=== PATIENT | female | born 1980 | race Caucasian/White ===

== ENCOUNTER 2019-07-02 13:18 | Emergency (ER) | payer MEDICAID ==
[2019-07-02 13:24] VITALS: BP 147/90; PULSE 98
--- NOTE | 2019-07-02 13:36 | EDM.PDOC ---
ED HPI GENERAL MEDICAL PROBLEM - General Chief Complaint: Back Pain or Injury Stated Complaint: back pain Time Seen by Provider: 07/02/19 13:25 Source of Information: Reports: Patient, Old Records (No [facility] records available) History Limitations: Reports: No Limitations - History of Present Illness INITIAL COMMENTS - FREE TEXT/NARRATIVE: The patient was brought to the emergency room via private automobile by her father for evaluation of refractory low back pain with right-sided sciatica extending into the buttocks, which did worsen after a chiropractic treatment on 06/29 by her chiropractor, Phil Palacios, although no acute injury at that time. She rates her discomfort at 6/10 at rest with worsening 10/10 sharp right-sided low back pain radiating to the right buttocks region with movement. She denies any recent history of fall or injury. No history of paresthesias, leg weakness, neurological deficits, etc. with previously known degenerative disc disease by her history. He did take 600 mg of ibuprofen at 10 AM this morning with 650 mg of Tylenol taken at 4 AM. The patient denies any chest pain/pressure, heart flutter, dizziness, orthostasis, orthopnea, diaphoresis, paresthesias, recent decreased exercise tolerance, or any other anginal-type symptoms. No recent history of abdominal pain, heartburn, nausea, diarrhea, melena, gross hematochezia, or any food intolerance, including fatty foods, etc.. The patient also denies any recent fever, cough, wheezing, dyspnea, etc.. She denies any gross hematuria, colic, or other UTI symptoms. Onset: Gradual Onset Date: 06/29/19 Duration: Constant, Getting Worse Location: Reports: Back, Lower Extremity, Right (Buttocks), Radiates to (As above). Denies: Head, Face, Neck, Chest, Abdomen, Upper Extremity, Left, Upper Extremity, Right, Lower Extremity, Left Quality: Reports: Same as Previous Episode, Sharp, Stabbing Severity: Severe Improves with: Reports: Rest Worsens with: Reports: Movement Context: Reports: Other (As above). Denies: Trauma Associated Symptoms: Denies: Confusion, Chest Pain, Cough, Diaphoresis, Fever/ Chills, Headaches, Loss of Appetite, Nausea/Vomiting, Seizure, Shortness of Breath, Syncope, Weakness Treatments TOUR DIRECTOR: Reports: Acetaminophen, NSAIDS Lower Back Pain Score (Numeric/FACES): 10 - Related Data Allergies Allergy/AdvReac Type Severity Reaction Status Date / Time CT scan dye Allergy Airway Uncoded 07/02/19 13:25 Tightness Home Meds: Home Meds Albuterol [Ventolin 2 MG/5 ML] 2 puff INH ACLUNCH 07/02/19 [History] Cyclobenzaprine [Flexeril] 10 mg PO TID PRN #30 tab 07/02/19 [Rx] Fluticasone/Salmeterol [Advair 250-50 Diskus] 1 each IH BID 07/02/19 [History] Levonorgestrel [Mirena] 1 each IY ASDIRECTED 07/02/19 [History] Montelukast [Singulair] 10 mg PO DAILY 07/02/19 [History] Past Medical History HEENT History: Reports: None, Allergic Rhinitis, Impaired Vision, Other (See Below) Other HEENT History: Patient wears glasses. Cardiovascular History: Reports: Heart Murmur, Syncope, Other (See Below) Other Cardiovascular History: Benign heart murmur of with additional syncopal episode in March 2011 with negative echocardiogram as below. Respiratory History: Reports: Asthma, Bronchitis, Recurrent. Denies: Pneumonia , Recurrent Gastrointestinal History: Reports: Cholelithiasis, Other (See Below) Other Gastrointestinal History: Dysfunctional gallbladder with ejection fraction of only 7%. 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 Note current IUD. Gestational diabetes with second . Otherwise, Full term without complications during pregnancies or deliveries. Benign ovarian cysts. Musculoskeletal History: Reports: Arthritis, Back Pain, Chronic, Osteoarthritis , Other (See Below). Denies: Fracture Other Musculoskeletal History: Scoliosis. Workmen's Compensation injury in 2002 when a [facility] resident fell on her low back. Endocrine/Metabolic History: Reports: Diabetes, Gestational, Obesity/BMI 30+. Denies: Diabetes, Type I, Diabetes, Type II, Hypothyroidism, IDDM Dermatologic History: Reports: Other (See Below) Other Dermatologic History: Acne vulgaris. - Past Surgical History Head Surgeries/Procedures: Reports: None HEENT Surgical History: Reports: Adenoidectomy, Oral Surgery, Tonsillectomy, Other (See Below) Other HEENT Surgeries/Procedures: Tonsillectomy and adenoidectomy. Holiday teeth extraction x 4 in 2001. GI Surgical History: Reports: Cholecystectomy, Other (See Below) Other GI Surgeries/Procedures: Laparoscopic cholecystectomy on 10/07/11 secondary to dysfunctional gallbladder. Female Surgical History: Reports: Other (See Below). Denies: Section, Oophorectomy, Salpingo-Oophorectomy, Tubal Ligation Other Female Surgeries/Procedures: IUD in 2017. Neurological Surgical History: Reports: None. Denies: C-Spine, Discectomy, Laminectomy, Lumbar Spine, Sacral Spine, Spinal Fusion, Thoracic Spine, Vertebroplasty - Past Imaging History Past Imaging History: Reports: Cardiac Echo (03/26/11.), CAT Scan (CT of the Abdomen and pelvis on 02/26/13. CT of the cervical spine and head on 10/15/10.), HIDA Scan (Positive HIDA scan on 11/30/10 with results as above.), Ultrasound ( Gallbladderultrasound on 12/03/10. Multiple previous OB ultrasounds.) Social & Family History - Tobacco Use Smoking Status *Q: Current Every Day Smoker Tobacco Use Within Last Twelve Months: Cigarettes Packs/Tins Daily Comment: She did not wish to discuss tobacco use. 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 ED EXAM,LOWER BACK PAIN/INJURY - Physical Exam Exam: See Below Exam Limited By: No Limitations General Appearance: Alert, WD/WN, No Apparent Distress Head: Atraumatic, Normocephalic. No: Facial Swelling, Facial Tenderness, Sinus Tenderness Neck: Normal Inspection, Supple, Non-Tender, Full Range of Motion. No: Lymphadenopathy (L), Lymphadenopathy (R), Thyromegaly Respiratory/Chest: No Respiratory Distress, Lungs Clear, Normal Breath Sounds, No Accessory Muscle Use, Chest Non-Tender. No: Pleural Rub, Retractions Cardiovascular: Normal Peripheral Pulses, Regular Rate, Rhythm, No Edema, No Gallop, No JVD, No Murmur, No Rub. No: Gallop/S3, Gallop/S4, Friction Rub GI/Abdominal: Normal Bowel Sounds, Soft, Non-Tender, No Organomegaly, No Distention, No Abnormal Bruit, No Mass, Pelvis Stable, Other (Obese). No: Guarding (Female) Exam: Deferred Rectal (Female) Exam: Deferred Back Exam: Decreased Range of Motion (Secondary to low back pain), Muscle Spasm (Mild right lower lumbar), Paraspinal Tenderness (As above). No: CVA Tenderness (L), CVA Tenderness (R), Vertebral Tenderness Extremities: Normal Inspection, Normal Range of Motion, Non-Tender, No Pedal Edema, Normal Capillary Refill. No: Shima's Sign Neurological: Alert, Normal Mood/Affect, Normal Dorsiflexion, CN II-XII Intact, Normal Plantar Flexion, Normal Gait, Normal Reflexes, No Motor/Sensory Deficits , Oriented x 3 Psychiatric: Normal Affect, Normal Mood Skin Exam: Warm, Dry, Intact, Normal Color, No Rash, Other (Mild facial acne vulgaris with scarring). No: Diaphoretic, Wound/Incision Lymphatic: No Adenopathy Course - Vital Signs Last Recorded V/S: Last Vital Signs Temp 36.6 C 07/02/19 13:18 Pulse 98 07/02/19 13:18 Resp 16 07/02/19 13:18 BP 147/90 H 07/02/19 13:18 Pulse Ox 100 07/02/19 13:18 Vital Signs - 24 hr 07/02/19 13:18 Temperature [ 36.6 C Temporal] Pulse, 98 Peripheral [ Left Pulse Oximetry] Respiratory 16 Rate Blood Pressure 147/90 H [Left Upper Arm ] O2 Sat by Pulse 100 Oximetry - Orders/Labs/Meds Orders: Active Orders 24 hr Category Date Time Status Lumbar Spine Min 4V [CR] Stat Exams 07/02/19 13:37 Ordered Obtain Past Medical Record [OM.PC] Routine Oth 07/02/19 13:36 Active Labs: Laboratory Tests 07/02/19 Range/Units 13:45 HCG, Qual Negative (NEGATIVE) Meds: None - Radiology Interpretation Free Text/Narrative:: X-rays of the lumbar spine, including obliques, shows evidence of mild osteoarthritic changes particularly in the L4-L5 region with additional somewhat decreased lordosis. Departure - Departure Time of Disposition: 14:40 Disposition: Home, Self-Care 01 Condition: Good Clinical Impression: Obesity (BMI 30-39.9), Tobacco abuse counseling, Elevated blood pressure reading Osteoarthritis Qualifiers: Osteoarthritis location: multiple joints Osteoarthritis type: primary Qualified Code(s): M15.0 - Primary generalized (osteo)arthritis Low back pain Qualifiers: Chronicity: acute Back pain laterality: right Sciatica presence: with sciatica Sciatica laterality: sciatica of right side Qualified Code(s): M54.41 - Lumbago with sciatica, right side - Discharge Information *PRESCRIPTION DRUG MONITORING PROGRAM REVIEWED*: Not Applicable *COPY OF PRESCRIPTION DRUG MONITORING REPORT IN PATIENT RICH: Not Applicable Prescriptions: Cyclobenzaprine [Flexeril] 10 mg PO TID PRN #30 tab PRN Reason: Spasms Instructions: Acute Back Pain, Adult Referrals: PCP,Unknown [Primary Care Provider] - Forms: ED Department Discharge, ED Return to Work/School Form Additional Instructions: 1. Followup with your regular provider or chiropractor in 7-10 days as needed. Bring these discharge instructions with you to that visit. 2. Tylenol 650 mg by mouth every 4 hours and/or OTC ibuprofen 2-3 tabs by mouth every 6 hours with food as directed./needed. You may stagger these medications for 48-72 hours only, which essentially means that you are receiving a pain medication about every 2 hours. 3. BenGay or equivalent, heating pad, and/or ice packs as directed. 4. Sedation, confusion, etc. precautions with your muscle relaxant as discussed 5. Immediately after this visit verify that your cellular telephone's voicemail has been activated and is empty. Also verify that your home telephone 's answering machine is operating properly and has space to receive messages. Note that it is sometimes necessary for us to be able to contact you at a later date to discuss your medical care. 6. Please remember that we are ALWAYS here for you and want to answer any questions you may have. Feel free to call the hospital any time and we call you back CHAMP. 7. Delay any further chiropractic treatments until recommended follow-up visit as above. - Problem List & Annotations (1) Low back pain SNOMED Code(s): 566987445 Code(s): M54.5 - LOW BACK PAIN Status: Acute Priority: High Current Visit: Yes Onset Date: ~12/06/19 Annotation/Comment:: Various therapeutic options were discussed the patient, who did not wish to have IM diazepam as a muscle relaxant. Flexeril was prescribed with symptomatic relief as per discharge instructions. Work excuse provided. Qualifiers: Chronicity: acute Back pain laterality: right Sciatica presence: with sciatica Sciatica laterality: sciatica of right side Qualified Code(s): M54.41 - Lumbago with sciatica, right side (2) Obesity (BMI 30-39.9) SNOMED Code(s): 731347881, 109681116 Code(s): E66.9 - OBESITY, UNSPECIFIED Status: Chronic Priority: Medium Current Visit: Yes Annotation/Comment:: Weight loss in moderation advised especially in light of her previous history of gestational diabetes. (3) Osteoarthritis SNOMED Code(s): 460627855 Code(s): M19.90 - UNSPECIFIED OSTEOARTHRITIS, UNSPECIFIED SITE Status: Chronic Priority: Medium Current Visit: Yes Annotation/Comment:: Otherwise stable by history. Qualifiers: Osteoarthritis location: multiple joints Osteoarthritis type: primary Qualified Code(s): M15.0 - Primary generalized (osteo)arthritis (4) Tobacco abuse counseling SNOMED Code(s): 324188181, 245332034, 073371860 Code(s): Z71.6 - TOBACCO ABUSE COUNSELING Status: Chronic Priority: Medium Current Visit: Yes Annotation/Comment:: She did not wish to discuss her tobacco use. Tobacco cessation strongly encouraged especially in light of her asthma, etc. (5) Elevated blood pressure reading SNOMED Code(s): 60985655 Code(s): R03.0 - ELEVATED BLOOD-PRESSURE READING, W/O DIAGNOSIS OF HTN Status: Acute Priority: Medium Onset Date: 07/02/19 Annotation/Comment:: Possibly secondary to her discomfort. No previous history of hypertension. Continue to observe closely by her regular provider. - Problem List Review Problem List Initiated/Reviewed/Updated: Yes - My Orders Last 24 Hours: My Active Orders 07/02/19 13:36 Obtain Past Medical Record [OM.PC] Routine 07/02/19 13:37 Lumbar Spine Min 4V [CR] Stat - Assessment/Plan Last 24 Hours: My Active Orders 07/02/19 13:36 Obtain Past Medical Record [OM.PC] Routine 07/02/19 13:37 Lumbar Spine Min 4V [CR] Stat Assessment:: As above. Plan: As above. Extensive precautions were given to the patient, who is in agreement with the treatment plan. See Patient Instructions for further treatment and plan.
== END 2019-07-02 14:44 | disposition home or self-care (01) ==
LOC: LL.ED 13:18 → MERGE 13:18 → LL.ED 14:44
DX: M54.41 Lumbago with sciatica, right side (principal); M15.0 Primary generalized (osteo)arthritis; E66.9 Obesity, unspecified; R03.0 Elevated blood-pressure reading, without diagnosis of hypertension; J45.909 Unspecified asthma, uncomplicated; F17.210 Nicotine dependence, cigarettes, uncomplicated; Z71.6 Tobacco abuse counseling; Z91.041 Radiographic dye allergy status; Z79.51 Long term (current) use of inhaled steroids; Z68.29 Body mass index [BMI] 29.0-29.9, adult
CPT/HCPCS: 36415; 72110; 84703; 99283-25

== ENCOUNTER 2019-09-06 14:34 | Emergency (ER) | payer MEDICAID ==
[2019-09-06 14:50] VITALS: BP 137/98; PULSE 106
[2019-09-06] MEDS ORDERED: Morphine 2 MG/ML Syringe IM ONE (14:58)
[2019-09-06] MEDS ORDERED: Ketorolac 60 MG/2 ML SDV IM ONE (14:59)
--- NOTE | 2019-09-06 15:04 | EDM.PDOC ---
ED HPI GENERAL MEDICAL PROBLEM - General Chief Complaint: Back Pain or Injury Stated Complaint: back pain Time Seen by Provider: 09/06/19 14:58 Source of Information: Reports: Patient History Limitations: Reports: No Limitations - History of Present Illness INITIAL COMMENTS - FREE TEXT/NARRATIVE: Pt with hx/o chronic back pain Pain extends down left buttock and leg Has been seen in pain clinic previously Had injection on 08/27/19 Has appointment in pain clinic tomorrow Was told by pain clinic to come to ER See MRI report Onset: Gradual Duration: Chronic Location: Reports: Back Quality: Reports: Stabbing Left Posterior Hip Pain Score (Numeric/FACES): 5 - Related Data Allergies Allergy/AdvReac Type Severity Reaction Status Date / Time amoxicillin trihydrate Allergy unknown Verified 09/06/19 14:39 [From Augmentin] Iodinated Contrast Media Allergy Airway Verified 09/06/19 14:39 Tightness potassium clavulanate Allergy unknown Verified 09/06/19 14:39 [From Augmentin] CT scan dye Allergy Airway Uncoded 09/06/19 14:39 Tightness Home Meds: Home Meds Albuterol [Proventil HFA] 2 puff INH ASDIRECTED PRN 02/21/15 [History] Fluticasone/Salmeterol [Advair 250-50 Diskus] 1 each IH BID 07/02/19 [History] Montelukast [Singulair] 10 mg PO DAILY 07/02/19 [History] levonorgestreL [Mirena] 1 each IY ASDIRECTED 07/02/19 [History] Ibuprofen 4 tab PO Q6H PRN 09/06/19 [History] Past Medical History HEENT History: Reports: Allergic Rhinitis, Impaired Vision, None, Other (See Below) Other HEENT History: Patient wears glasses. Cardiovascular History: Reports: Heart Murmur, Other (See Below), Syncope Other Cardiovascular History: Benign heart murmur of with additional syncopal episode in March 2011 with negative echocardiogram as below. Respiratory History: Reports: Asthma, Bronchitis, Recurrent. Denies: Pneumonia , Recurrent Gastrointestinal History: Reports: Cholelithiasis, Other (See Below) Other Gastrointestinal History: Dysfunctional gallbladder with ejection fraction of only 7%. 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 Note current IUD. Gestational diabetes with second . Otherwise, Full term without complications during pregnancies or deliveries. Benign ovarian cysts. Musculoskeletal History: Reports: Arthritis, Back Pain, Chronic, Other (See Below), Osteoarthritis Other Musculoskeletal History: Scoliosis. Workmen's Compensation injury in 2002 when a [facility] resident fell on her low back. Endocrine/Metabolic History: Reports: Diabetes, Gestational, Obesity/BMI 30+. Denies: Diabetes, Type I, Diabetes, Type II, Hypothyroidism, IDDM Dermatologic History: Reports: Other (See Below) Other Dermatologic History: Acne vulgaris. 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 - Review of Systems Review Of Systems: See Below Musculoskeletal: Reports: Back Pain, Other (Radiates down left leg) ED EXAM,LOWER BACK PAIN/INJURY - Physical Exam Exam: See Below Exam Limited By: No Limitations General Appearance: Moderate Distress Extremities: Other (Left lumbar area tneder with palpation Pain radiates down lateral left buttock and leg) Course - Vital Signs Last Recorded V/S: Last Vital Signs Temp 98.5 F 09/06/19 14:39 Pulse 106 H 09/06/19 14:39 Resp 18 09/06/19 14:39 BP 137/98 H 09/06/19 14:39 Pulse Ox 99 09/06/19 14:39 - Orders/Labs/Meds Meds: Medications Discontinued Medications Generic Name Dose Route Start Last Admin Trade Name Freq PRN Reason Stop Dose Admin Ketorolac Tromethamine 60 mg 09/06/19 14:59 Toradol IM 09/06/19 15:00 ONETIME ONE Morphine Sulfate 4 mg 09/06/19 14:58 Morphine IM 09/06/19 14:59 ONETIME ONE - Re-Assessments/Exams Free Text/Narrative Re-Assessment/Exam: 09/06/19 15:03 Pt given Toradol 60 mg IM and Morphine 4 mg IM in ER Departure - Departure Time of Disposition: 15:30 Disposition: Home, Self-Care 01 Clinical Impression: Low back pain Qualifiers: Chronicity: chronic Back pain laterality: left Sciatica presence: with sciatica Sciatica laterality: sciatica of left side Qualified Code(s): M54.42 - Lumbago with sciatica, left side; G89.29 - Other chronic pain - Discharge Information *PRESCRIPTION DRUG MONITORING PROGRAM REVIEWED*: Not Applicable *COPY OF PRESCRIPTION DRUG MONITORING REPORT IN PATIENT RICH: Not Applicable Instructions: Radicular Pain, Acute Back Pain, Adult Referrals: Bernie Drake PA-C [Primary Care Provider] - Additional Instructions: Follow up in clinic tomorrow as scheduled Sepsis Event Note - Evaluation Sepsis Screening Result: No Definite Risk - Focused Exam Vital Signs: Vital Signs Temp Pulse Resp BP Pulse Ox 09/06/19 14:39 98.5 F 106 H 18 137/98 H 99 Date Exam was Performed: 09/06/19 Time Exam was Performed: 15:00
== END 2019-09-06 15:37 | disposition home or self-care (01) ==
LOC: LL.ED 14:34
DX: M54.42 Lumbago with sciatica, left side (principal); G89.29 Other chronic pain; J45.909 Unspecified asthma, uncomplicated; E66.9 Obesity, unspecified; Z88.1 Allergy status to other antibiotic agents; Z88.8 Allergy status to other drugs, medicaments and biological substances; Z91.041 Radiographic dye allergy status; Z79.899 Other long term (current) drug therapy
CPT/HCPCS: 96372; 99283; J1885; J2270

== ENCOUNTER 2021-02-04 17:17 | Emergency (ER) | payer MEDICAID ==
[2021-02-04 17:24] VITALS: BP 136/85; PULSE 98
--- NOTE | 2021-02-04 18:10 | EDM.PDOC ---
ED HPI GENERAL MEDICAL PROBLEM - General Chief Complaint: General Stated Complaint: BUG BITE Time Seen by Provider: 02/04/21 17:53 Source of Information: Reports: Patient History Limitations: Reports: No Limitations - History of Present Illness INITIAL COMMENTS - FREE TEXT/NARRATIVE: Patient comes to ER with scattered itchy areas of erythema. Was out weeding garden/yard yesterday. Does not recall getting bit by any insects. No ticks. Small central blisters in several lesions. Hydrocortisone cream/benadryl not helpful. No fevers/chills. No streaking of the redness. Is doing well otherwise. No previous similar reactions. Patient has not been near any beaches/water. Right Upper Arm Pain Score (Numeric/FACES): 5 - Related Data Allergies Allergy/AdvReac Type Severity Reaction Status Date / Time amoxicillin trihydrate Allergy unknown Verified 02/04/21 17:29 [From Augmentin] Iodinated Contrast Media Allergy Airway Verified 02/04/21 17:29 Tightness potassium clavulanate Allergy unknown Verified 02/04/21 17:29 [From Augmentin] CT scan dye Allergy Airway Uncoded 02/04/21 17:29 Tightness Home Meds: Home Meds Albuterol [Proventil HFA] 2 puff INH ASDIRECTED PRN 02/21/15 [History] Fluticasone Propion/Salmeterol [Advair 250-50 Diskus] 1 each IH BID 07/02/19 [History] Montelukast [Singulair] 10 mg PO DAILY 07/02/19 [History] levonorgestreL [Mirena] 1 each IY ASDIRECTED 07/02/19 [History] Ibuprofen 4 tab PO Q6H PRN 09/06/19 [History] Levothyroxine [Synthroid] 50 mcg PO DAILY 02/04/21 [History] predniSONE 20 mg PO DAILY #3 tab 02/04/21 [Rx] Past Medical History HEENT History: Reports: Allergic Rhinitis, Impaired Vision, None, Other (See Below) Other HEENT History: Patient wears glasses. Cardiovascular History: Reports: Heart Murmur, Other (See Below), Syncope Other Cardiovascular History: Benign heart murmur of with additional syncopal episode in March 2011 with negative echocardiogram as below. Respiratory History: Reports: Asthma, Bronchitis, Recurrent Gastrointestinal History: Reports: Cholelithiasis, Other (See Below) Other Gastrointestinal History: Dysfunctional gallbladder with ejection fraction of only 7%. SPECTRAL SCIENTIST History: Reports: Polycystic Ovaries, , Spontaneous Other SPECTRAL SCIENTIST History: Normal LMP one week ago. Note current IUD. Gestational diabetes with second . Otherwise, Full term without complications during pregnancies or deliveries. Benign ovarian cysts. Musculoskeletal History: Reports: Arthritis, Back Pain, Chronic, Other (See Below), Osteoarthritis Other Musculoskeletal History: Scoliosis. Workmen's Compensation injury in 2002 when a [employer] resident fell on her low back. Endocrine/Metabolic History: Reports: Diabetes, Gestational, Obesity/BMI 30+ Dermatologic History: Reports: Other (See Below) Other Dermatologic History: Acne vulgaris. - Past Surgical History Head Surgeries/Procedures: Reports: None HEENT Surgical History: Reports: Adenoidectomy, Other (See Below), Oral Surgery, Tonsillectomy Other HEENT Surgeries/Procedures: Tonsillectomy and adenoidectomy. [place] teeth extraction x 4 in 2001. GI Surgical History: Reports: Cholecystectomy, Other (See Below) Other GI Surgeries/Procedures: Laparoscopic cholecystectomy on 10/07/11 secondary to dysfunctional gallbladder. Female Surgical History: Reports: Other (See Below) Other Female Surgeries/Procedures: IUD in 2017. 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 ED EXAM, GENERAL - Physical Exam Exam: See Below Exam Limited By: No Limitations General Appearance: Alert, WD/WN, No Apparent Distress Eye Exam: Bilateral Eye: EOMI, PERRL Ears: Hearing Grossly Normal Nose: No: Nasal Deformity, Nasal Swelling, Nasal Drainage Throat/Mouth: Normal Lips, Normal Voice, No Airway Compromise Head: Atraumatic, Normocephalic Neck: Normal Inspection, Supple, Non-Tender, Full Range of Motion Respiratory/Chest: No Respiratory Distress Cardiovascular: Regular Rate, Rhythm Extremities: Normal Capillary Refill, Other (scattered round areas of erythema, most prominent one is left upper arm. Central clear blister noted in that one. No drainage. Has second smaller one left back/excoriated. Several scattered smaller ones noted around upper legs/other areas. No streaking of red. No purulence noted.) Neurological: Alert, Oriented, Normal Cognition, Normal Gait, No Motor/Sensory Deficits Psychiatric: Normal Affect, Normal Mood Skin Exam: Warm, Dry, Erythema, Increased Warmth, Rash (see above) Course - Vital Signs Last Recorded V/S: Last Vital Signs Temp 36.8 C 02/04/21 17:18 Pulse 98 02/04/21 17:18 Resp 20 02/04/21 17:18 BP 136/85 02/04/21 17:18 Pulse Ox 100 02/04/21 17:18 - Orders/Labs/Meds Meds: Medications Discontinued Medications Generic Name Dose Route Start Last Admin Trade Name Freq PRN Reason Stop Dose Admin Famotidine 20 mg 02/04/21 18:03 Famotidine 20 Mg Tab PO 02/04/21 18:04 ONETIME ONE Prednisone 40 mg 02/04/21 18:03 Prednisone 20 Mg Tab PO 02/04/21 18:04 ONETIME ONE - Re-Assessments/Exams Free Text/Narrative Re-Assessment/Exam: 02/04/21 18:08 Given the discrete round appearance of lesions they appear to be most likely secondary to insect bite than contact dermatitis. No systemic complaints. No evidence of acute bacterial infection. Plan at this time is to have patient observe lesions for change/alternate topical antibiotic ointment with Benadryl gel and hydrocortisone topically. 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 To return for recheck if there are any concerning change. Precautions reviewed. Departure - Departure Time of Disposition: 18:20 Disposition: Home, Self-Care 01 Condition: Good Clinical Impression: Bug bites Qualifiers: Encounter type: initial encounter Qualified Code(s): W57.XXXA - Bitten or stung by nonvenomous insect and other nonvenomous arthropods, initial encounter - Discharge Information *PRESCRIPTION DRUG MONITORING PROGRAM REVIEWED*: Not Applicable *COPY OF PRESCRIPTION DRUG MONITORING REPORT IN PATIENT RICH: Not Applicable Prescriptions: predniSONE 20 mg PO DAILY #3 tab Instructions: Insect Bite, Adult Referrals: Bernie Drake PA-C [Primary Care Provider] - Forms: ED Department Discharge Additional Instructions: Watch for changes and follow up for recheck if any concerns develop. Alternate antibiotic ointment with Benadryl gel and Hydrocortisone cream on lesions. 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 Continue oral Benadryl two tabs every 6 hours to help with itching. As we discussed, hard to say if this was due to spiders or another insect. The lesions currently are more consistent with some sort of insect bite and not contact dermatitis such as in cases of poison [place]. Sepsis Event Note (ED) - Evaluation Sepsis Screening Result: No Definite Risk - Focused Exam Vital Signs: Vital Signs Temp Pulse Resp BP Pulse Ox 02/04/21 17:18 36.8 C 98 20 136/85 100
[2021-02-04] MEDS: Famotidine 20 MG Tab PO ONE (18:28)
[2021-02-04] MEDS: predniSONE 20 MG Tab PO ONE (18:28)
== END 2021-02-04 18:30 | disposition home or self-care (01) ==
LOC: LL.ED 17:17
DX: S40.862A Insect bite (nonvenomous) of left upper arm, initial encounter (principal); E66.9 Obesity, unspecified; Z68.30 Body mass index [BMI] 30.0-30.9, adult; Z91.041 Radiographic dye allergy status; Z88.1 Allergy status to other antibiotic agents; Z72.0 Tobacco use; W57.XXXA Bitten or stung by nonvenomous insect and other nonvenomous arthropods, initial encounter
CPT/HCPCS: 99281; 99283; A9270; J7512

== ENCOUNTER 2022-09-09 10:21 | Day surgery (SDC) | payer MEDICAID ==
[~2022-09-09 10:21] MED LIST: Lactated Ringers 1,000 ML IV SCH; Midazolam 1 MG/ML 2 ML SDV ONE; Propofol 200 MG/20 ML SDV ONE; Sodium Chloride 0.9% 10 ML Syringe FLUSH PRN
[2022-09-09] MEDS ORDERED: Lidocaine 2% 5 ML SDV ONE (10:45)
[2022-09-09] MEDS ORDERED: Glycopyrrolate 0.2 MG/ML SDV IVPUSH ONE (10:45)
[2022-09-09 11:33] VITALS: BP 107/83; PULSE 95
== END 2022-09-09 12:26 | disposition home or self-care (01) ==
LOC: LL.SDS 10:21
PROVIDERS: ATTEND Surgery
DX: K21.9 Gastro-esophageal reflux disease without esophagitis (principal); D72.10 Eosinophilia, unspecified; J45.909 Unspecified asthma, uncomplicated; R49.9 Unspecified voice and resonance disorder; Z79.899 Other long term (current) drug therapy; Z88.0 Allergy status to penicillin; Z88.1 Allergy status to other antibiotic agents
CPT/HCPCS: J2250; J2704; J3490; J7120

== ENCOUNTER 2025-06-12 11:20 | Emergency (ER) | payer OTHER ==
[2025-06-12] MEDS: diphenhydrAMINE 50 MG/ML SDV IVPUSH ONE (11:53)
[2025-06-12] MEDS: Ketorolac 15 MG/ML SDV IVPUSH ONE (11:53)
[2025-06-12] MEDS: Prochlorperazine 10 MG/2 ML SDV IVPUSH ONE (11:54)
[2025-06-12] MEDS: Prochlorperazine 5 MG in Sodium Chloride 0.9% 100 ML IV ONE (11:54)
[2025-06-12] MEDS: methylPREDNISolone Sodium Succinate 125 MG/2 ML SDV IV ONE (11:54)
[2025-06-12] MEDS: Lactated Ringers 1,000 ML IV SCH (11:59)
[2025-06-12 12:39] LABS: CORONAVIRUS COVID-19 NAA NEGATIVE (NEGATIVE); INFLUENZA A NAA NEGATIVE (NEGATIVE); INFLUENZA B NAA NEGATIVE (NEGATIVE); RESPIRATORY SYNCYTIAL VIR NAA NEGATIVE (NEGATIVE)
[2025-06-12 13:26] VITALS: BP 142/87; PULSE 82
== END 2025-06-12 12:55 | disposition home or self-care (01) ==
LOC: MERGE 11:20 → LL.ED 11:20
DX: J45.901 Unspecified asthma with (acute) exacerbation (principal); E86.0 Dehydration; K21.9 Gastro-esophageal reflux disease without esophagitis; F17.200 Nicotine dependence, unspecified, uncomplicated; Z90.49 Acquired absence of other specified parts of digestive tract; Z88.0 Allergy status to penicillin; Z88.8 Allergy status to other drugs, medicaments and biological substances; Z91.041 Radiographic dye allergy status; Z79.890 Hormone replacement therapy; Z79.899 Other long term (current) drug therapy
CPT/HCPCS: 71045; 87637; 94640; 96361; 96374; 96375; 99285-25; A9270-GY; J0780; J1200; J1885; J2919; J7120